=== PATIENT | male | born 1985 | race African-American/Black ===

== ENCOUNTER → 2021-01-01 | Day surgery (SDC) | payer OTHER ==
[~2021-01-01] VITALS: Ht 167.6 cm; Wt 85.9 kg
[~2021-01-01] MED LIST: ALBU2.5V8 IH; ATOR20TA58 PO; CHLO25TA10 PO; DULO30CA2 PO; HYDROmorphone 2 MG/ML VIAL IVP PRN; IV RINGERS,LACTATED 1000ML 1,000 ML IV SCH; LORA10TA3 PO; MORPHINE SULFATE 2 MG/ML INJ. IVP PRN; PROCHLORPERAZINE 10 MG/2 ML VIAL. IVP PRN; PROPOFOL 10 MG/ML (20ML) VIAL. IV ONE; VERA240C2 PO; fentaNYL PF VIAL 100 MCG/2 ML VIAL IVP PRN
[2021-01-01 06:16] VITALS: BP 142/89
[2021-01-01 08:00] VITALS: BP 134/75
--- NOTE | 2021-01-01 08:12 | CONS ---
DATE OF CONSULTATION: 01/01/2021 REFERRING PHYSICIAN: Dr. Mills. REASON FOR CONSULTATION: Family history of colon cancer. HISTORY OF PRESENT ILLNESS: This is a 35-year-old -[place] male with past medical history significant for asthma, hyperlipidemia and hypertension who is seen for screening colonoscopy. Bowel habits have been regular without diarrhea or constipation. There has been no melena or hematochezia. Weight and appetite are stable. FAMILY HISTORY: Positive for colon cancer in both his brother and older sister in their 40s. Sister just recently passed. Family history is significant for colon cancer in 2 siblings. PAST MEDICAL HISTORY: 1. Hypertension. 2. Hyperlipidemia. 3. Asthma. ALLERGIES: None. MEDICATIONS: Include: 1. Albuterol. 2. Atorvastatin. 3. Chlorthalidone. 4. Cymbalta. 5. Loratadine. 6. Verapamil. FAMILY AND SOCIAL HISTORY: Significant for colon cancer in 2 siblings. He is a smoker. Nondrinker. PAST SURGICAL HISTORY: Noncontributory. REVIEW OF SYSTEMS: Per records. PHYSICAL EXAMINATION: GENERAL: Reveals a well-nourished, well-developed -Afghan male who is alert, cooperative, in no acute distress. VITAL SIGNS: Temperature 97.7, pulse 49, respiratory rate 20. HEENT: Normocephalic, atraumatic head. Pupils and extraocular muscles not tested. Sclerae anicteric. NECK: Supple. LUNGS: Clear. CARDIOVASCULAR: Reveals S1, S2 without S3, S4 or appreciable murmur. ABDOMEN: Reveals a soft abdomen. Normal bowel sounds. Appreciable hepatosplenomegaly. EXTREMITIES: Reveals no cyanosis, clubbing or edema. IMPRESSION: Family history of colon cancer. Colonoscopy is recommended at this time. Risks and benefits of the procedure, including signs of perforation were discussed. The patient is willing to proceed. SURAJ COLLINS: Leidy TID: [id number]
--- NOTE | 2021-01-04 17:07 | PATHOLOGY ---
[facility] Accession Number: [id number] . 01 Material submitted: . sigmoid colon - SIGMOID POLYP . 01 Clinical history: . FX HX POLYPS COLON POLYP FAMILY HX COLON CA . 02 Diagnosis: Colon biopsy, sigmoid colon polyp: - Hyperplastic polyp/prominent mucosal fold. LBQ 01/04/2021 1443 Local . 02 Comment: There are no adenomatous changes or evidence of malignancy. (JPM/db; 01/04/2021) . 02 Electronically signed: . Kevin Levine MD, Pathologist NPI- [id number] . 01 Gross description: . Received in formalin labeled "Quang Mcdonald, sigmoid polyp" is a fragment of hernandez-brown soft tissue measuring 0.3 x 0.2 x 0.1 cm. The specimen is submitted entirely in A1. ([facility] [place]; 01/02/2021) [facility] 01/02/2021 1121 Local . 02 Pathologist provided ICD-10: K63.5 . 02 CPT . 369200 Specimen Comment: A courtesy copy of this report has been sent to [phone], [phone] Specimen Comment: [id number] Specimen Comment: Report sent to / DR AQUINO Performed at: 01 [facility] [address], [place], [place] [id number] MD Wyatt Abreu MD Phone: [phone] Performed at: 02 [facility] [place] [address] [place], [place] [id number] MD Kevin Levine MD Phone: [phone]
== END | disposition home or self-care (01) ==
LOC: ENDOS 06:04 → EEVIPCON 07:00
PROVIDERS: ATTEND Internal Medicine Gastroenterology
DX: Z12.11 Encounter for screening for malignant neoplasm of colon (principal); K64.0 First degree hemorrhoids; K63.5 Polyp of colon; K63.89 Other specified diseases of intestine; I10 Essential (primary) hypertension; E78.00 Pure hypercholesterolemia, unspecified; J45.909 Unspecified asthma, uncomplicated; Z80.0 Family history of malignant neoplasm of digestive organs; Z79.899 Other long term (current) drug therapy; Z98.890 Other specified postprocedural states
CPT/HCPCS: 45380; 88305; J2704